=== PATIENT | male | born 1940 | race Two or more races ===

== ENCOUNTER → 2021-02-25 | Day surgery (SDC) | payer OTHER ==
[~2021-02-25] MED LIST: ASACOL HD800 MG PO; CIPRO500 MG PO; COZAAR50 MG PO; ELIQUIS5 MG PO; FLAGYL500MG PO; NEURONTIN600 M1 PO; ZOLOFT50 MG PO
== END | disposition home or self-care (01) ==
LOC: ADM 02-19 10:30 → CIR.AMB 06:53
PROVIDERS: ATTEND Colon & Rectal Surgery
DX: K62.7 Radiation proctitis (principal); K64.1 Second degree hemorrhoids; Z20.822 Contact with and (suspected) exposure to COVID-19

== ENCOUNTER 2021-03-05 13:11 | Emergency (ER) | payer OTHER ==
[~2021-03-05] VITALS: Ht 175.3 cm; Wt 69.9 kg
[~2021-03-05 13:11] MED LIST changes: -ASACOL HD800 MG PO; -CIPRO500 MG PO; -FLAGYL500MG PO
[2021-03-05] MEDS ORDERED: CIPRO500 MG PO (18:51)
[2021-03-05] MEDS ORDERED: FLAGYL500MG PO (18:51)
[2021-03-05] MEDS ORDERED: ASACOL HD800 MG PO (18:51)
== END 2021-03-05 19:12 | disposition home or self-care (01) ==
LOC: ER 13:11
DX: K91.89 Other postprocedural complications and disorders of digestive system (principal); K52.89 Other specified noninfective gastroenteritis and colitis; Y83.8 Other surgical procedures as the cause of abnormal reaction of the patient, or of later complication, without mention of misadventure at the time of the procedure